=== PATIENT | female | born 1985 | race Caucasian/White ===

== ENCOUNTER 2017-06-10 21:02 | Emergency (ER) | payer BC ==
[2017-06-10 21:09] VITALS: BP 121/80
--- NOTE | 2017-06-10 21:38 | UC ---
Complaint Female HPI - HPI Summary HPI Summary: Pt presents to with report of 3 days of progressive urinary frequency, malodor and 24 of increasing LBP. Pt denies fevers, chills. Denies nausea, vomiting. No rash. no diarrhea. No abdominal pain. Pt is an insulin dependent diabetic - states sugars have been running 200-250. Before dinner tonight was 190 and ketones have been "good." No analgesia taken. No vaginal discharge, itching, odor. Pt states approx 3 weeks ago was treated elsewhere for UTI and placed on Macrobid. Pt states had Group B Strep in urine and was told to d/c abx. Pt states she felt better until 3 weeks ago. Pt with a h/o DKA - last approx 3 months ago. Pt states eating and drink well - feels well otherwise Pt's medications reviewed at today's visit - History Of Current Complaint Chief Complaint: UCBackPain Stated Complaint: FREQ URINATION,BACK PAIN Time Seen by Provider: 06/10/17 21:21 Hx Obtained From: Patient Hx Last Menstrual Period: 1 WEEK AGO Onset/Duration: Lasting Days Timing: Constant Severity Initially: Mild Severity Currently: Moderate Pain Intensity: 5 Aggravating Factor(s): Movement Alleviating Factor(s): Position Associated Signs And Symptoms: Positive: Back Pain. Negative: Fever, Nausea, Vomiting(# Of Episodes =) - Allergies/Home Medications Allergies/Adverse Reactions: Allergies Allergy/AdvReac Type Severity Reaction Status Date / Time No Known Allergies Allergy Verified 06/10/17 21:09 PMH/Surg Hx/FS Hx/Imm Hx Previously Healthy: Yes Endocrine History: Diabetes - Surgical History Surgical History: None - Family History Known Family History: Positive: None - Social History Occupation: Employed Full-time Lives: With Family Alcohol Use: Occasionally Substance Use Type: None Smoking Status (MU): Current Some Day Smoker - Immunization History Most Recent Influenza Vaccination: 2011 Most Recent Tetanus Shot: >10 yrs Most Recent Pneumonia Vaccination: recently Review of Systems Constitutional: Negative Skin: Negative Eyes: Negative ENT: Negative Respiratory: Negative Cardiovascular: Negative Gastrointestinal: Negative Genitourinary: Frequency, Urgency Motor: Negative Neurovascular: Negative Musculoskeletal: Negative Neurological: Negative Psychological: Negative All Other Systems Reviewed And Are Negative: Yes Physical Exam Triage Information Reviewed: Yes Appearance: Well-Appearing, No Pain Distress, Well-Nourished Vital Signs: Initial Vital Signs Temp 98 F 06/10/17 21:05 Pulse 89 06/10/17 21:05 Resp 16 06/10/17 21:05 BP 121/80 06/10/17 21:05 Pulse Ox 99 06/10/17 21:05 Vital Signs Reviewed: Yes Eyes: Positive: Conjunctiva Clear ENT Exam: Normal ENT: Positive: Hearing grossly normal Dental Exam: Normal Neck: Positive: Supple, Nontender, No Lymphadenopathy Respiratory Exam: Normal Respiratory: Positive: Chest non-tender, Lungs clear, Normal breath sounds, No respiratory distress, No accessory muscle use Cardiovascular Exam: Normal Cardiovascular: Positive: RRR, No Murmur, Pulses Normal Abdominal Exam: Normal Abdomen Description: Positive: No Organomegaly, Soft, Other: - mild suprapubic discomfort with direct palpation. Negative: Nontender, CVA Tenderness (R), CVA Tenderness (L) Bowel Sounds: Positive: Present Musculoskeletal Exam: Normal Musculoskeletal: Positive: Strength Intact Neurological Exam: Normal Neurological: Positive: Alert Psychological Exam: Normal Psychological: Positive: Normal Response To Family Skin Exam: Normal Complaint Female Dx - Course Course Of Treatment: Pt presents with urinary frequency and odor. Pt is an insulin dependent diabetic. reports BG 190 tonight. urine + UTI. 1+ ketone. Pt well appearing on exam with stable VS. Mick discharge home with Rx cipro. urine culture. Pt given strict return instructions. states understanding, agreement and comfort with plan - Differential Dx/Diagnosis Provider Diagnoses: UTI Discharge - Discharge Plan Condition: Stable Disposition: HOME Prescriptions: Ciprofloxacin TAB* [Cipro 500 MG TAB*] 500 mg PO BID #20 tab Patient Education Materials: Urinary Tract Infection in Women (ED) Referrals: No Primary Care Phys,NOPCP [Primary Care Provider] - Additional Instructions: - Stay well hydrated. Drink plenty on non-alcoholic, non-caffinated beverages - Take antibiotics exactly as prescribed until gone - Okay to take Tylenol every 6 hours as needed for pain - Your urine has been sent for additional testing - if you need a different antibiotic, you will receive a call from the care team - Monitor your glucose and your urine ketones closely - if you develop fevers, vomiting, uncontrolled pain or ANY other concerns, go to the emergency department for additional treatment. contact your doctor to arrange a follow-up appointment
[2017-06-10] MEDS ORDERED: Ciprofloxacin TAB* 500 MG PO ONE (21:50)
[2017-06-10] MEDS ORDERED: Acetaminophen TAB* 325 MG PO ONE (21:50)
--- NOTE | 2017-06-13 16:50 | UC ---
Progress - Progress Note Progress Note: ON CIPRO AT DISCHARGE. CULTURE AND SENSITIVITY SHOW MICROBE IS SENSITIVE TO SELECTED THERAPY NO CHANGE OF TREATMENT COURSE REQUIRED AT THIS TIME <Sherwin Brannon - Last Filed: 06/13/17 16:50> Attestation Statement User Type: Provider - I was available for consult. This patient was seen by the AFSHAN. The patient was not presented to, seen by, or examined by me. -Kathleen <Isabel Vega - Last Filed: 06/14/17 09:19>
== END 2017-06-10 22:04 | disposition home or self-care (01) ==
LOC: UCEAST 21:02
DX: N39.0 Urinary tract infection, site not specified (principal); Z32.02 Encounter for pregnancy test, result negative; E11.9 Type 2 diabetes mellitus without complications; F17.210 Nicotine dependence, cigarettes, uncomplicated
CPT/HCPCS: 81003; 84702; 87077; 87086; 87186; 99212; A9270-GY; G0463

== ENCOUNTER 2017-10-08 06:51 | Observation (INO) | payer BC ==
[2017-10-08] MEDS ORDERED: Ondansetron INJ* 2 MG/ML VIAL IV ONE (07:41)
[2017-10-08] MEDS ORDERED: NS 0.9% 1000 ML* 3,000 ML IV ONE (07:41)
[2017-10-08 08:14] LABS: ABS Basophils 0 10^3/ul (0-0.2); ABS Eosinophils 0 10^3/ul (0-0.6); ABS Lymphocytes 0.8 10^3/ul (1.0-4.8); ABS Monocytes 0.8 10^3/ul (0-0.8); ABS Neutrophils 11.8 10^3/ul (1.5-7.7); ABS Nucleated RBC 0.03 10^3/ul; EGFR Non-African American 58.5 (>60); Eosinophil % 0 % (0-6); Hematocrit 48 % (35-47); Hemoglobin 16.1 g/dl (12.0-16.0); Lymphocyte % 5.6 % (25-47); Mean Corpuscular HGB Conc 33 g/dl (31-36); Mean Corpuscular Hemoglobin 31 pg (27-31); Mean Corpuscular Volume 94 fL (80-97); Mean Platelet Volume 8 um3 (7.4-10.4); Nucleated Red Blood Cells % 0.2; Platelet Count 344 10^3/ul (150-450); Red Blood Count 5.15 10^6/ul (4.0-5.4); Red Cell Distribution Width 13 % (10.5-15); White Blood Count 13.3 10^3/ul (3.5-10.8)
[2017-10-08 08:17] LABS: INR 0.86 (0.77-1.02)
[2017-10-08 08:47] LABS: Urine Appearance Cloudy; Urine Blood 2+ (Negative); Urine Color Straw; Urine Ketones 2+ (Negative); Urine Protein 1+(30 mg/dL) (Negative); Urine Specific Gravity 1.014 (1.010-1.030); Urine Urobilinogen Negative (Negative)
[2017-10-08] MEDS ORDERED: Ketorolac INJ* 30 MG/ML 1 ML VIAL IV ONE (09:48)
[2017-10-08] MEDS ORDERED: cefTRIAXone(*) 1 GM in NS 0.9% 50 ML* 50 ML IVPB ONE (09:48)
--- NOTE | 2017-10-08 10:06 | RAD ---
Indication: Fever and chills. Single frontal view of the chest performed at 0950 hours was reviewed. Comparison is made with previous exam dated September 16, 2010. No mediastinal shift is noted. Heart is of normal size and configuration. Lung [place] appear clear. IMPRESSION: NO ACTIVE CARDIOPULMONARY DISEASE IS NOTED.
[2017-10-08] MEDS ORDERED: Acetaminophen TAB* 325 MG PO PRN (10:40)
--- NOTE | 2017-10-08 10:52 | ADMNOTE ---
Subjective Date of Service: 10/08/17 Interval History: ADMISSION HISTORY AND PHYSICAL EXAM: Allergies Allergy/AdvReac Type Severity Reaction Status Date / Time No Known Allergies Allergy Verified 06/10/17 21:09 Home Medications Medication Instructions Recorded Confirmed Type Insulin Glargine [Lantus] 40 units SUBCUT BEDTIME 07/19/12 06/10/17 History Insulin Lispro [Humalog] 100 unit SC PRN 03/17/16 History Ciprofloxacin TAB* [Cipro 500 MG 500 mg PO BID #20 tab 06/10/17 Rx TAB*] HPI: The patient started feeling poorly yesterday, did not take short-acting insulin all day even though her glucometer read 178. She did take her usual dose of Lantus 40 U last evening. She started throwing up and having BL flank and back pain. No chills or sweats, no sx's. Family History: Findings - Father got DM age 22, on insulin, never had DKA. Other family members have DM. Social History: Findings - Lives alone. Occ smokes cigarettes. No alcohol abuse. Her mother, Torrie Mcgovern is her SDM. Past Medical History: Findings - Approx 4 prior episodes of DKA. DM since age 21. Review of Systems - Measurements Intake and Output: Intake and Output Last 24 Hours 10/06/17 10/07/17 10/08/17 10/09/17 06:59 06:59 06:59 06:59 Intake Total 50 Balance 50 Intake: IV Fluids 50 - Review of Systems Constitutional Symptoms: Negative: Weight Gain, Weight Loss, Weakness, Fatigue, Fever, Night Sweats, Unexplained Falls, Other Dermatology: Positive: Normal HEENT: Positive: Normal Eyes: Positive: Normal Thyroid: Positive: Normal Pulmonary: Positive: Normal Cardiology: Positive: Normal Gastroenterology: Positive: Nausea, Vomiting Genital - Urinary: Positive: Normal Genitourinay - Female: Positive: Menses Normal Musculoskeletal: Negative: Joint Pain, Joint Stiffness, Arthritis, Osteoporosis, Low Back Pain , Sciatica, Joint Deformities, Kyphoscoliosis, Other Endocrinology: Positive: Diabetes Mellitus Hematologic/Lymphatic: Negative: Anemia, Easy Brusing, Hx Leukemia, Hx Lymphoma, Use of Anticoagulant, Use of Antiplatelet Drugs, Other Neurology: Positive: Normal Psychiatry: Positive: Normal Objective Active Medications: Acetaminophen (Tylenol Tab*) 650 mg PO Q4H PRN PRN Reason: PAIN Potassium Chloride/Dextrose (D5w Ns 0.9% 20meq Kcl 1000 Ml*) 1,000 mls @ 150 mls/hr IV PER RATE [facility] Insulin Human Regular 100 (units/ Sodium Chloride) 100 mls @ 4 mls/hr IVPB Q24H [facility] PRN Reason: 4 UNITS/HR Insulin Glargine (Lantus(*)) 40 units SUBCUT Q24H [facility] Vital Signs - 8 hr 10/08/17 10/08/17 10:00 10:07 Pulse Rate 90 92 Blood Pressure 104/63 (mmHg) O2 Sat by Pulse 100 100 Oximetry Oxygen Devices in Use Now: None Appearance: Alert, sitting up on ED stretcher. In fair spirits. Looks comfortable. Eyes: No Scleral Icterus Neck: NL Appearance and Movements; NL JVP, No Thyroid Enlargement, Masses Respiratory: Symmetrical Chest Expansion and Respiratory Effort, Clear to Auscultation, Clear to Percussion Cardiovascular: NL Sounds; No Murmurs; No JVD, RRR, No Edema, - Abdominal: No Hepatosplenomegaly, - - BL flank tenderness. Extremities: No Edema, No Clubbing, Cyanosis, - Skin: No Rash or Ulcers, No Nodules or Sclerosis, - Neurological: Alert and Oriented x 3, NL Sensation Result Diagrams: 10/08/17 07:47 10/08/17 07:47 Assess/Plan/Problems-Billing Assessment: - Patient Problems (1) DKA (diabetic ketoacidoses) Current Visit: No Status: Acute Code(s): E13.10 - OTH DIABETES MELLITUS WITH KETOACIDOSIS WITHOUT COMA SNOMED Code(s): 295504408 Comment: Start insulin drip. Back pain is part of her usual DKA symptoms. U /A neg. US kidneys requested. I spoke with Dr. Watson who thought she might be a candidate for a newer insulin pump. She did poorly with an insulin pump about 10 yrs ago. (2) Tobacco abuse Current Visit: Yes Status: Acute Code(s): Z72.0 - TOBACCO USE SNOMED Code( s): 264977903 Comment: Pt advised to quit smoking and avoid second hand smoke.
[2017-10-08] MEDS ORDERED: Insulin REGULAR(*) 100 UNITS in NS 0.9% 100 ML* 100 ML IVPB SCH (11:00)
[2017-10-08] MEDS ORDERED: D5W NS 0.9% 20Meq KCL 1000 ML* 1,000 ML IV SCH (11:00)
[2017-10-08] MEDS ORDERED: Ondansetron INJ* 2 MG/ML VIAL IV PRN (11:30)
--- NOTE | 2017-10-08 11:43 | RAD ---
Indication: Bilateral flank pain. Real-time sonography of the kidneys was performed. The right kidney measures 11.2 x 3.9 x 6.1 cm. Left kidney measures 11.7 x 5.1 x 5.0 cm. No hydronephrosis is noted. IMPRESSION: Unremarkable renal ultrasound with no hydronephrosis.
[2017-10-08 14:43] LABS: EGFR Non-African American 74.9 (>60)
[2017-10-08] MEDS ORDERED: Dextrose 50% Syringe 50 ML* 25 GM/50 ML SYRINGE IV PUSH PRN (15:44)
[2017-10-08] MEDS: Insulin LISPRO* 1 UNITS UNIT SUBCUT SCH ×2 (17:34→21:55)
--- NOTE | 2017-10-08 18:20 | ED ---
Breonna Turner Abhishek, scribed for Eric Borjas MD on 10/08/17 at 0741 . Influenza-Like Illness - HPI Summary HPI Summary: This patient is a 32 year old F BIBA accompanied by female with a chief complaint of N/V/D since 0000 (10/07/17). Pt vomited at midnight yesterday. Wants to check for UTI and gets them often. Pt has not taken Tylenol and ibuprofen because of inability to keep anything down. The patient rates the pain 6/10 in severity. Symptoms aggravated by nothing. Symptoms alleviated by nothing. Patient reports kidney pain, lower back pain, CASTELLANOS and Intermittent chills and hot flashes. Patient denies fever, and ear pain. - History of Current Complaint Chief Complaint: EDNauseaVomitDiarrh Hx Obtained From: Patient Onset/Duration: Gradual Onset, Lasting Days - yesterday mightnight (0000), Still Present Associated Signs & Symptoms: Myalgia - lower back pain, Headache, Vomiting, Diarrhea - Allergy/Home Medications Allergies/Adverse Reactions: Allergies Allergy/AdvReac Type Severity Reaction Status Date / Time No Known Allergies Allergy Verified 06/10/17 21:09 PMH/Surg Hx/FS Hx/Imm Hx Endocrine/Hematology History: Reports: Hx Diabetes Denies: Hx Thyroid Disease Cardiovascular History: Denies: Hx Hypertension Respiratory History: Denies: Hx Asthma, Hx Chronic Obstructive Pulmonary Disease (COPD) GI History: Denies: Hx Ulcer Sensory History: Reports: Hx Contacts or Glasses Opthamlomology History: Reports: Hx Contacts or Glasses Infectious Disease History: No Infectious Disease History: Denies: Hx Hepatitis, Hx Human Immunodeficiency Virus (HIV), Traveled Outside the [place] in Last 30 Days - Family History Known Family History: Positive: Hypertension, Diabetes - Social History Lives: With Family Alcohol Use: Occasionally Substance Use Type: Reports: None Hx Tobacco Use: Yes Smoking Status (MU): Current Some Day Smoker Review of Systems Positive: Other - Intermittent chills and hot flashes. Negative: Fever Eyes: Negative Negative: Ear Ache Cardiovascular: Negative Respiratory: Negative Positive: Vomiting - 1x at 0000 on 10/07/17, Diarrhea, Nausea Genitourinary: Negative Positive: Myalgia - lower back pain Skin: Negative Neurological: Negative Psychological: Normal All Other Systems Reviewed And Are Negative: Yes Physical Exam - Summary Physical Exam Summary: General: Moderately ill appearing, no pain distress Skin: warm, color reflects adequate perfusion, dry Head: normal, Oral mucosa Dry Eyes: EOMI, ANDREW ENT: normal, Ears are dry Neck: supple, nontender Respiratory: CTA, breath sounds present Cardiovascular: RRR Abdomen: Bilateral flank tenderness to percussion Bowel: present Musculoskeletal: normal, strength/ROM intact Neurological: normal, sensory/motor intact, A&O x3 Psychological: affect/mood appropriate Triage Information Reviewed: Yes Vital Signs On Initial Exam: Initial Vitals Temp Pulse Resp BP Pulse Ox 97.7 F 107 20 117/74 98 10/08/17 06:54 10/08/17 06:54 10/08/17 06:54 10/08/17 06:54 10/08/17 06:54 Vital Signs Reviewed: Yes - Nicolette Coma Scale Coma Scale Total: 15 Diagnostics - Vital Signs Vital Signs Temp Pulse Resp BP Pulse Ox 10/08/17 07:30 101 126/79 100 10/08/17 07:10 99 100 10/08/17 07:08 119/80 10/08/17 06:54 97.7 F 107 20 117/74 98 - Laboratory Lab Results: Lab Results 10/08/17 10/08/17 10/08/17 Range/Units 07:47 07:47 07:47 WBC 13.3 H (3.5-10.8) 10^3/ul RBC 5.15 (4.0-5.4) 10^6/ul Hgb 16.1 H (12.0-16.0) g/dl Hct 48 H (35-47) % MCV 94 (80-97) fL MCH 31 (27-31) pg MCHC 33 (31-36) g/dl RDW 13 (10.5-15) % Plt Count 344 (150-450) 10^3/ul MPV 8 (7.4-10.4) um3 Neut % (Auto) 88.6 H (38-83) % Lymph % (Auto) 5.6 L (25-47) % [place] % (Auto) 5.7 (1-9) % Eos % (Auto) 0 (0-6) % Baso % (Auto) 0.1 (0-2) % Absolute Neuts (auto) 11.8 H (1.5-7.7) 10^3/ul Absolute Lymphs (auto) 0.8 L (1.0-4.8) 10^3/ul Absolute Monos (auto) 0.8 (0-0.8) 10^3/ul Absolute Eos (auto) 0 (0-0.6) 10^3/ul Absolute Basos (auto) 0 (0-0.2) 10^3/ul Absolute Nucleated RBC 0.03 10^3/ul Nucleated RBC % 0.2 INR (Anticoag Therapy) 0.86 (0.77-1.02) APTT 30.4 (26.0-36.3) seconds VBG pH (7.33-7.43) VBG pCO2 (41-51) mmHg VBG pO2 (35-45) mmHg VBG HCO3 (24-28) mmol/L VBG O2 Saturation (70-80) % VBG Base Excess (0-4) Sodium 133 (133-145) mmol/L Potassium 4.6 (3.5-5.0) mmol/L Chloride 101 (101-111) mmol/L Carbon Dioxide 12 L* (22-32) mmol/L Anion Gap 20 H (2-11) mmol/L BUN 15 (6-24) mg/dL Creatinine 1.09 H (0.51-0.95) mg/dL Est GFR ( Amer) 75.3 (>60) Est GFR (Non-Af Amer) 58.5 (>60) BUN/Creatinine Ratio 13.8 (8-20) Glucose 207 H (70-100) mg/dL POC Glucose (mg/dL) (70-100) mg/dL Lactic Acid (0.5-2.0) mmol/L Calcium 9.4 (8.6-10.3) mg/dL Total Bilirubin 0.40 (0.2-1.0) mg/dL AST 14 (13-39) U/L ALT 14 (7-52) U/L Alkaline Phosphatase 91 (34-104) U/L C-Reactive Protein 3.39 (< 5.00) mg/L Total Protein 8.3 (6.4-8.9) g/dL Albumin 5.2 (3.2-5.2) g/dL Globulin 3.1 (2-4) g/dL Albumin/Globulin Ratio 1.7 (1-3) Lipase < 10 L (11.0-82.0) U/L Beta HCG, Quant < 0.60 mIU/mL Urine Color Urine Appearance Urine pH (5-9) Ur Specific [place] (1.010-1.030) Urine Protein (Negative) Urine Ketones (Negative) Urine Blood (Negative) Urine Nitrate (Negative) Urine Bilirubin (Negative) Urine Urobilinogen (Negative) Ur Leukocyte Esterase (Negative) Urine WBC (Auto) (Absent) Urine RBC (Auto) (Absent) Ur Squamous Epith Cells (Absent) Urine Bacteria (Absent) Urine Glucose (Negative) Influenza A (Rapid) (Negative) Influenza B (Rapid) (Negative) 10/08/17 10/08/17 10/08/17 Range/Units 07:47 07:58 08:03 WBC (3.5-10.8) 10^3/ul RBC (4.0-5.4) 10^6/ul Hgb (12.0-16.0) g/dl Hct (35-47) % MCV (80-97) fL MCH (27-31) pg MCHC (31-36) g/dl RDW (10.5-15) % Plt Count (150-450) 10^3/ul MPV (7.4-10.4) um3 Neut % (Auto) (38-83) % Lymph % (Auto) (25-47) % Gila % (Auto) (1-9) % Eos % (Auto) (0-6) % Baso % (Auto) (0-2) % Absolute Neuts (auto) (1.5-7.7) 10^3/ul Absolute Lymphs (auto) (1.0-4.8) 10^3/ul Absolute Monos (auto) (0-0.8) 10^3/ul Absolute Eos (auto) (0-0.6) 10^3/ul Absolute Basos (auto) (0-0.2) 10^3/ul Absolute Nucleated RBC 10^3/ul Nucleated RBC % INR (Anticoag Therapy) (0.77-1.02) APTT (26.0-36.3) seconds VBG pH 7.12 L (7.33-7.43) VBG pCO2 25 L (41-51) mmHg VBG pO2 31 L (35-45) mmHg VBG HCO3 8.8 L (24-28) mmol/L VBG O2 Saturation 70.1 (70-80) % VBG Base Excess -19.7 L (0-4) Sodium (133-145) mmol/L Potassium (3.5-5.0) mmol/L Chloride (101-111) mmol/L Carbon Dioxide (22-32) mmol/L Anion Gap (2-11) mmol/L BUN (6-24) mg/dL Creatinine (0.51-0.95) mg/dL Est GFR ( Amer) (>60) Est GFR (Non-Af Amer) (>60) BUN/Creatinine Ratio (8-20) Glucose (70-100) mg/dL POC Glucose (mg/dL) (70-100) mg/dL Lactic Acid 1.2 (0.5-2.0) mmol/L Calcium (8.6-10.3) mg/dL Total Bilirubin (0.2-1.0) mg/dL AST (13-39) U/L ALT (7-52) U/L Alkaline Phosphatase (34-104) U/L C-Reactive Protein (< 5.00) mg/L Total Protein (6.4-8.9) g/dL Albumin (3.2-5.2) g/dL Globulin (2-4) g/dL Albumin/Globulin Ratio (1-3) Lipase (11.0-82.0) U/L Beta HCG, Quant mIU/mL Urine Color Straw Urine Appearance Cloudy Urine pH 5.0 (5-9) Ur Specific [place] 1.014 (1.010-1.030) Urine Protein 1+(30 mg/dl) H (Negative) Urine Ketones 2+ H (Negative) Urine Blood 2+ H (Negative) Urine Nitrate Negative (Negative) Urine Bilirubin Negative (Negative) Urine Urobilinogen Negative (Negative) Ur Leukocyte Esterase Negative (Negative) Urine WBC (Auto) Trace(0-5/hpf) (Absent) Urine RBC (Auto) 2+(6-10/hpf) H (Absent) Ur Squamous Epith Cells Present H (Absent) Urine Bacteria Absent (Absent) Urine Glucose 3+(>=500 mg/dl) H (Negative) Influenza A (Rapid) (Negative) Influenza B (Rapid) (Negative) 10/08/17 10/08/17 Range/Units 08:09 08:23 WBC (3.5-10.8) 10^3/ul RBC (4.0-5.4) 10^6/ul Hgb (12.0-16.0) g/dl Hct (35-47) % MCV (80-97) fL MCH (27-31) pg MCHC (31-36) g/dl RDW (10.5-15) % Plt Count (150-450) 10^3/ul MPV (7.4-10.4) um3 Neut % (Auto) (38-83) % Lymph % (Auto) (25-47) % [place] % (Auto) (1-9) % Eos % (Auto) (0-6) % Baso % (Auto) (0-2) % Absolute Neuts (auto) (1.5-7.7) 10^3/ul Absolute Lymphs (auto) (1.0-4.8) 10^3/ul Absolute Monos (auto) (0-0.8) 10^3/ul Absolute Eos (auto) (0-0.6) 10^3/ul Absolute Basos (auto) (0-0.2) 10^3/ul Absolute Nucleated RBC 10^3/ul Nucleated RBC % INR (Anticoag Therapy) (0.77-1.02) APTT (26.0-36.3) seconds VBG pH (7.33-7.43) VBG pCO2 (41-51) mmHg VBG pO2 (35-45) mmHg VBG HCO3 (24-28) mmol/L VBG O2 Saturation (70-80) % VBG Base Excess (0-4) Sodium (133-145) mmol/L Potassium (3.5-5.0) mmol/L Chloride (101-111) mmol/L Carbon Dioxide (22-32) mmol/L Anion Gap (2-11) mmol/L BUN (6-24) mg/dL Creatinine (0.51-0.95) mg/dL Est GFR ( Amer) (>60) Est GFR (Non-Af Amer) (>60) BUN/Creatinine Ratio (8-20) Glucose (70-100) mg/dL POC Glucose (mg/dL) 184 H (70-100) mg/dL Lactic Acid (0.5-2.0) mmol/L Calcium (8.6-10.3) mg/dL Total Bilirubin (0.2-1.0) mg/dL AST (13-39) U/L ALT (7-52) U/L Alkaline Phosphatase (34-104) U/L C-Reactive Protein (< 5.00) mg/L Total Protein (6.4-8.9) g/dL Albumin (3.2-5.2) g/dL Globulin (2-4) g/dL Albumin/Globulin Ratio (1-3) Lipase (11.0-82.0) U/L Beta HCG, Quant mIU/mL Urine Color Urine Appearance Urine pH (5-9) Ur Specific [place] (1.010-1.030) Urine Protein (Negative) Urine Ketones (Negative) Urine Blood (Negative) Urine Nitrate (Negative) Urine Bilirubin (Negative) Urine Urobilinogen (Negative) Ur Leukocyte Esterase (Negative) Urine WBC (Auto) (Absent) Urine RBC (Auto) (Absent) Ur Squamous Epith Cells (Absent) Urine Bacteria (Absent) Urine Glucose (Negative) Influenza A (Rapid) Negative (Negative) Influenza B (Rapid) Negative (Negative) Result Diagrams: 10/08/17 07:47 10/08/17 14:00 Lab Statement: Any lab studies that have been ordered have been reviewed, and results considered in the medical decision making process. - CT Chest X-ray CT Interpretation Completed By: Radiologist - CXR reveals, per radiologist, NO ACTIVE CARDIOPULMONARY DISEASE IS NOTED. ED physician has reviewed this radiology report. - Ultrasound No standard instances Ultrasound Interpretation Completed By: Radiologist - US Renal Reveals Unremarkable renal ultrasound with no hydronephrosis. ED physician has reviewed this radiology report. Flu Symptom Course/Dx - Course Course Of Treatment: ADMIT HOSPITALIST - Diagnoses Provider Diagnoses: DKA (diabetic ketoacidoses) Critical Care Time: 30-74 min Discharge - Discharge Plan Condition: Stable Disposition: ADMITTED TO [facility] documentation as recorded by the Breonna villanueva Abhishek accurately reflects the service I personally performed and the decisions made by , Eric Borjas MD.
[2017-10-08] MEDS ORDERED: Insulin GLARGINE(*) 1 UNITS UNIT SUBCUT SCH (20:00)
[2017-10-09 07:31] VITALS: BP 101/67
[2017-10-09] MEDS: Insulin LISPRO* 1 UNITS UNIT SUBCUT SCH (07:51)
[2017-10-09] MEDS ORDERED: Dextrose 50% Syringe 50 ML* 25 GM/50 ML SYRINGE IV PUSH PRN (09:46)
--- NOTE | 2017-10-09 11:20 | PN ---
Progress Note - Progress Note Date of Service: 10/09/17
[2017-10-09] MEDS ORDERED: Insulin LISPRO* 1 UNITS UNIT SUBCUT SCH (11:30)
--- NOTE | 2017-10-09 15:47 | DS ---
CC: Dr. Connolly; Dr. Watson * DISCHARGE SUMMARY: DATE OF ADMISSION: 10/08/17 DATE OF DISCHARGE: 10/09/17 HISTORY OF PRESENT ILLNESS: This 32-year-old woman presented with emesis and bilateral flank pain. She was found to be in diabetic ketoacidosis even though her blood sugar on presentation to the hospital was only 207. She did have an anion gap, she had ketones in the urine. The last time she had the diabetic ketoacidosis which was a year and a half ago, her blood sugar was only 236. She omitted taking insulin in the morning of admission because she did not feel well and she was not eating even though her blood sugar was 178. She did take her Lantus on schedule, however. The patient was given intravenous insulin. Her anion gap went from 20 to 6 in about 7 hours. She felt much better. Her flank pain went away. Ultrasound of the kidneys was unremarkable. I advised her that she needs to take insulin even if she is not eating. She really did not follow her 2 sliding scales at that time. We will arrange for her to have an appointment with Dr. Watson for consideration of insulin pump therapy or other type of therapy for her diabetes. 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 [id number]/[facility] #: [id number]
== END 2017-10-09 11:15 | disposition home or self-care (01) ==
LOC: ED 06:51 → ICU 09:50 → INTOOBSV 09:50 → SSU 18:11
PROVIDERS: ADMIT Internal Medicine; ATTEND Internal Medicine
DX: E11.10 Type 2 diabetes mellitus with ketoacidosis without coma (principal); Z79.4 Long term (current) use of insulin; R07.9 Chest pain, unspecified; R11.2 Nausea with vomiting, unspecified; F17.210 Nicotine dependence, cigarettes, uncomplicated; R19.7 Diarrhea, unspecified; M54.5 Low back pain
CPT/HCPCS: 36415; 71010; 76775; 80048; 80053; 81003; 81015; 82803; 83605; 83690; 84702; 85025; 85610; 85730; 86140; 87040; 87502; 87641; 96365; 96375; 99291; A9270-GY; G0378; J0696; J1815; J1885; J2405

== ENCOUNTER 2019-04-16 02:00 | Emergency (ER) | payer BC, OTHER ==
[2019-04-16] MEDS ORDERED: Lidocaine 2% 10 ML* VIAL INJ ONE (02:16)
[2019-04-16] MEDS ORDERED: Bupivacaine 0.5% W/EPI SDV* 10 ML VIAL INJ ONE (02:16)
--- NOTE | 2019-04-16 02:18 | ED ---
Throat Pain/Nasal Congestion - HPI Summary HPI Summary: A 34 y/o female presents to [facility] with a chief complaint of right lower back molar pain since 04/15/19. She reports that on 04/13/19 she fractured she had 1/ 2 of a root canal done on a fractured tooth. She says that on 04/15/19 she had a piercing, stabbing pain, took abx, and now has a different pain. At triage she rated her pain as an 8/10 in severity. She has been taking Advil. She denies any fever. She has a Hx of DM and claims that currently her blood glucose is high. SHx of wisdom teeth removal. - History of Current Complaint Chief Complaint: EDDentalPain Time Seen by Provider: 04/16/19 02:11 Hx Obtained From: Patient Onset/Duration: Sudden Onset, Lasting Hours, Still Present Severity: Severe Associated Signs And Symptoms: Positive: Negative Cough: None - Allergies/Home Medications Allergies/Adverse Reactions: Allergies Allergy/AdvReac Type Severity Reaction Status Date / Time amoxicillin Allergy Hives Verified 04/16/19 02:04 Home Medications: Home Medications Cephalexin CAP* [Keflex 500 CAP*] 500 mg PO BID 04/16/19 [History Confirmed 01/30] PMH/Surg Hx/FS Hx/Imm Hx Endocrine/Hematology History: Reports: Hx Diabetes Denies: Hx Thyroid Disease Cardiovascular History: Denies: Hx Hypertension Respiratory History: Denies: Hx Asthma, Hx Chronic Obstructive Pulmonary Disease (COPD) GI History: Denies: Hx Ulcer Musculoskeletal History: Denies: Hx Arthritis, Hx Osteoporosis Sensory History: Reports: Hx Contacts or Glasses Denies: Hx Hearing Aid Opthamlomology History: Reports: Hx Contacts or Glasses Neurological History: Reports: Hx Headaches - stress Infectious Disease History: No Infectious Disease History: Denies: Hx Hepatitis, Hx Human Immunodeficiency Virus (HIV), Traveled Outside the [place] in Last 30 Days - Family History Known Family History: Positive: Hypertension, Diabetes - Social History Alcohol Use: Occasionally Substance Use Type: Reports: None Hx Tobacco Use: Yes Smoking Status (MU): Current Some Day Smoker Type: Cigarettes Review of Systems Negative: Fever Positive: Dental Pain All Other Systems Reviewed And Are Negative: Yes Physical Exam - Summary Physical Exam Summary: Appearance: Well-appearing, Well-nourished, lying in bed comfortable Skin: Warm, dry, no obvious rash Eyes: sclera anicteric, no conjunctival pallor ENT: mucous membranes moist, no swelling of jaw, involved tooth has temporary filling, no gingival swelling associated, no obvious abscess Neck: deferred Respiratory: No signs of respiratory distress Cardiovascular: Appears well perfused, pulses are nml Abdomen: deferred Musculoskeletal: Moving all 4 extremities without obvious discomfort Neurological: Awake and alert, mentation is normal, speech is fluent and appropriate Psychiatric: affect is normal, does not appear anxious or depressed Triage Information Reviewed: Yes Vital Signs On Initial Exam: Initial Vitals Temp Pulse Resp BP Pulse Ox 98.1 F 93 20 136/99 98 04/16/19 02:01 04/16/19 02:01 04/16/19 02:01 04/16/19 02:01 04/16/19 02:01 Vital Signs Reviewed: Yes Diagnostics - Vital Signs Vital Signs Temp Pulse Resp BP Pulse Ox 04/16/19 02:01 98.1 F 93 20 136/99 98 - Laboratory Lab Statement: Any lab studies that have been ordered have been reviewed, and results considered in the medical decision making process. EENT Course/Dx - Course Course Of Treatment: A 34 y/o female presents to [facility] with a chief complaint of right lower back molar pain since 04/15/19. The physical exam revealed no swelling of jaw, involved tooth has temporary filling, no gingival swelling associated and no obvious abscess. In the ED course the patient was given Marcaine INJ and Lidocaine INJ, dental block. The patient will be discharged with a prescription for Vicodin and follow up with her PCP. The patient is agreeable with this plan. - Diagnoses Provider Diagnoses: Toothache Discharge - Sign-Out/Discharge Documenting (check all that apply): Patient Departure - DC Patient Received Moderate/Deep Sedation with Procedure: No - Discharge Plan Condition: Good Disposition: HOME Prescriptions: Hydrocodone/Acetaminophen [Vicodin 5-300 mg Tablet] 1 each PO Q4HR PRN #15 tablet MDD 6 PRN Reason: Pain Patient Education Materials: Toothache (ED) Referrals: Carisa Connolly MD [Primary Care Provider] - - Billing Disposition and Condition Condition: GOOD Disposition: Home - Attestation Statements Document Initiated by Scribe: Yes Documenting Scribe: Dominic Garcia Provider For Whom Scribe is Documenting (Include Credential): Rey Claudio MD Scribe Attestation: I, Dominic Garcia, scribed for Rey Claudio MD on 04/16/19 at 0601. Scribe Documentation Reviewed: Yes Provider Attestation: The documentation as recorded by the scribeDominic accurately reflects the service I personally performed and the decisions made by me, Rey Claudio MD Status of Scribe Document: Viewed
[2019-04-16 02:55] VITALS: BP 130/89
[2019-04-16] MEDS ORDERED: Bupivacaine 0.5% W/EPI SDV* 30 ML VIAL INJ ONE (03:00)
== END 2019-04-16 02:51 | disposition home or self-care (01) ==
LOC: ED 02:00
DX: K08.89 Other specified disorders of teeth and supporting structures (principal); E11.9 Type 2 diabetes mellitus without complications; Z88.0 Allergy status to penicillin; Z72.0 Tobacco use
CPT/HCPCS: 99282

== ENCOUNTER 2019-09-25 14:16 | Emergency (ER) | payer BC, OTHER ==
--- OUTSIDE RECORDS SUMMARY | 2019-09-25 14:33 | XMS REPORT | Continuity of Care Document ---
:1985 External Reference #:[id number] Author Name Jossy Hinds CNM Address [address] [place] [address] Care Team Providers Name Role Phone Carisa Connolly MD Care Team Information Glassware Maker [phone] Problems Active Problems Provider Date Type 2 diabetes mellitus CATRACHITO Harrington-C Onset: 03/13/2007 Subserous leiomyoma of uterus Chu Hopper M.D. Onset: 06/22/2019 Endometriosis of ovary Chu Hopper M.D. Onset: 08/05/2019 Social History Type Date Description Comments Sex Unknown Tobacco Use Start: Unknown End: Unknown Patient is a former smoker Smoking Status Reviewed: 09/25/19 Patient is a former smoker Allergies, Adverse Reactions, Alerts Active Allergies Reaction Severity Comments Date Amoxicillin Urticaria 12/27/2017 Inactive Allergies NKDA 11/14/2005 Medications Active Medications SIG Qnty Indications Ordering Provider Date Norethindrone Acetate 1 by mouth 60tabs Chu Hopper, 08/11/2019 5mg every day M.D. Tablets Apidra Geovanna Cramer, 03/13/2007 100Units/ML ANP-C Injection Lantus Geovanna Cramer, 03/13/2007 100Units/ML ANP-C Injection Mirena (52 MG) Unknown 20mcg/24HR IUD Vitamin B-12 1 po qd Unknown 500mcg Tablets Vitamin C 1 by mouth Unknown 500mg Tablets every day Vitamin D3 take one tablet Unknown 1000Unit by mouth daily. Capsules History Medications Orilissa 1 by mouth every 90tabs N80.1 Chu Hopper, 06/30/2019 - 150mg day M.DMarzena 07/14/2019 Tablets Medications Administered in Office Medication SIG Qnty Indications Ordering Provider Date PT SCRN Tbco Id as Non User Jossy Hinds CNM 09/25/2019 Injection PT SCRN Tbco Id as Non User Chu Hopper M.D. 08/11/2019 Injection PT SCRN Tbco Id as Non User Chu Hopper M.D. 06/30/2019 Injection PT SCRN Tbco Id as Non User Melodie Whitfield CNM 06/08/2019 Injection PT SCRN Tbco Id as Non User Melodie Whitfield CNM 04/29/2019 Injection No PT Tbco SCRN RNG CLARIBEL Harrington 11/06/2018 Injection PT SCRN Tbco Id as Non User CLARIBEL Harrington 11/06/2018 Injection PT SCRN Tbco Id as Non User Rui Gregorio MD 12/27/2017 Injection Immunizations Description No Information Available Vital Signs Date Vital Result Comment 09/25/2019 1:23pm BP Systolic 144 mmHg BP Diastolic 90 mmHg Height 64.5 inches 5'4.50" Weight 150.00 lb BMI (Body Mass Index) 25.3 kg/m2 1 Parity 0 08/11/2019 8:38am BP Systolic 124 mmHg BP Diastolic 76 mmHg Height 64.5 inches 5'4.50" Weight 147.00 lb BMI (Body Mass Index) 24.8 kg/m2 1 Parity 0 Results Test Acquired Date Facility Test Result H/L Range Note Laboratory test 04/29/2019 [facility] HCG < 0.60 [address] [place] [address] mIU/mL [phone] 1 <5.0 Negative 5.0 - 25.0 Indeterminate (Repeat testing recommended after 72 hours) >25.0 Positive Perimenopausal women can display HCG levels of up to 20 mIU/mL Procedures Date Code Description Status 06/08/2019 82387 Echography Transvaginal Completed Medical Devices Description No Information Available Encounters Type Date Location Provider Dx Diagnosis Office Visit 09/25/2019 [facility] Jossy Hinds CNM R10.31 Right lower quadrant 1:30p pain Office Visit 08/11/2019 [facility] Chu Hopper, R10.2 Pelvic and perineal 8:40a M.D. pain Office Visit 06/30/2019 [facility] Chu Hopper, N80.1 Endometriosis of ovary 2:20p M.D. D25.2 Subserosal leiomyoma of uterus Office Visit 06/08/2019 1:40p [facility] Melodie Gonzalez D25.2 Subserosal KARY Whitfield leiomyoma of uterus Office Visit 04/29/2019 2:20p [facility] Office Melodie Gonzalez R10.2 Pelvic and KARY Whitfield perineal pain Assessments Date Code Description Provider 09/25/2019 R10.31 Right lower quadrant pain Jossy Hinds CNM 08/11/2019 R10.2 Pelvic and perineal pain Chu Hopper M.D. 06/30/2019 N80.1 Endometriosis of ovary Chu Hopper M.D. 06/30/2019 D25.2 Subserosal leiomyoma of uterus Chu Hopper M.D. 06/08/2019 D25.2 Subserosal leiomyoma of uterus Chu Hopper M.D. 06/08/2019 D25.2 Subserosal leiomyoma of uterus Melodie Whitfield CNM 06/08/2019 D25.2 Subserosal leiomyoma of uterus Ultrasounds 04/29/2019 R10.2 Pelvic and perineal pain Melodie Whitfield CNM Plan of Treatment Future Appointment(s):09/30/2019 1:00 pm - Rui Gregorio MD at [facility] - Chu Hopper M.D.R10.2 Pelvic and perineal painComments: discussed use of progestin for rx . should have less side effects. if not effective may have to consider lapaoscopy for evaluation. pt has no plans for future fertility Functional Status Description No Information Available Mental Status Description No Information Available Referrals Description No Information Available
--- OUTSIDE RECORDS SUMMARY | 2019-09-25 14:34 | XMS REPORT | Summary of Care ---
:1985 Author Organization [facility] Address [address] [facility] [place] [address] Care Team Providers Name Role Phone Carisa Connolly MD Primary Care Provider Reason for Visit Reason Comments Diabetes Mellitus Pt reports using dexcom 6 Follow Up Encounter Details Date Type Department Care Team Description 08/27/2019 Office Visit [facility], Type 1 diabetes [address] [facility] [place] [address] [place] [address] complication ([facility]) [phone] [place] [address] (Primary Dx) [phone] Allergies Active Allergy Reactions Severity Noted Date Comments Amoxicillin Hives 10/11/2017 documented as of this encounter (statuses as of 08/27/2019) Medications Medication Sig Dispensed Refills Start Date End Date Status Blood Glucose by Does not apply 1 Kit 0 02/08/2010 Active Monitoring Suppl route. (BLOOD GLUCOSE METER) Does not apply Kit Lancets Does not by Does not apply 300 Each 5 05/11/2013 Active apply Misc route. Brand:freestyle Dx:250.03 Insulin dependent Test Blood Glucose 4 time(s) A DAY LISPRO insulin, RAPID Inject 7 Units 0 Active - Acting, (HUMALOG) beneath the skin 100 UNIT/ML DIRECTED. 7 base Subcutaneous plus sliding scale SolutionIndications: Indications: Type 1 Diabetes Insulin-Dependent Mellitus, additional Diabetes, correction factor is additional 2 unit to15 grams of correction factor carb is 2 unit to15 grams of carb GLARGINE insulin, Inject 18-20 Units 3 vial 3 05/09/2018 Active LONG-Acting, (LANTUS) beneath the skin 100 UNIT/ML TWICE DAILY. Subcutaneous SolutionIndications: Type 1 diabetes mellitus without complication (HCC) Additional information Patient taking differently: 35 Units Subcutaneous QAM, Reported on 2018 9:42 AM Continuous Blood Gluc Travel Manager 1 Device by Does not 1 Device 0 11/12/2018 Active (FREESTYLE TORITO 14 DAY READER) apply route DAILY. Type Does not apply 1 diabetes, insulin DeviceIndications: Type 1 dependent, not diabetes mellitus without controlled. E10.9 complication (HCC) Continuous Blood Gluc Sensor 1 Device by Does not 6 Device 3 12/09/2018 Active Does not apply Misc apply route EVERY FOUR HOURS. Insulin Syringe-Needle U-100 1 Units by Does not 400 Each 0 08/07/2019 Active (BD INSULIN SYRINGE ULTRAFINE) apply route FOUR TIMES 31G X 15/64" 1 ML Does not DAILY. E10.9 type 1 apply MiscIndications: Type 1 diabetes on insulin 4 diabetes mellitus with times a day ketoacidosis without coma (HCC) ondansetron (ZOFRAN ODT) 8 MG Take 1 Tab by mouth 30 Tab 0 08/07/2019 Active Oral TABLET EVERY EIGHT HOURS DISPERSIBLEIndications: Type 1 NEEDED (nausea). diabetes mellitus with ketoacidosis without coma (HCC) documented as of this encounter (statuses as of 08/27/2019) Active Problems Problem Noted Date Type 1 diabetes mellitus 12/04/2011 Overview: Onset 2006, on and off pump 2007 Adult BMI 19-24 kg/sq m 04/12/2011 documented as of this encounter (statuses as of 08/27/2019) Resolved Problems Problem Noted Date Resolved Date Other abnormal glucose 12/15/2006 12/04/2011 Urethral stricture unspecified 12/21/2004 12/18/2017 Type I (juvenile type) diabetes mellitus without mention of 12/04/2011 complication, uncontrolled Overview: onset 2006; on and off pump 2007 documented as of this encounter (statuses as of 08/27/2019) Immunizations Name Administration Dates Next Due Influenza (IM) Preservative Free 07/14/2018, 09/21/2010 Influenza Vaccine Split 08/13/2011 PNEUMOCOCCAL POLYSACCHARIDE VACCINE 08/13/2011 documented as of this encounter Social History Tobacco Use Types Packs/Day Years Used Date Never Smoker Smokeless Tobacco: Never Used Alcohol Use Drinks/Week oz/Week Comments No Sex Assigned at Date Recorded Not on file Job Start Date Occupation Industry Not on file Not on file Not on file Travel History Travel Start Travel End No recent travel history available. documented as of this encounter Last Filed Vital Signs Vital Sign Reading Time Taken Comments Blood Pressure 116/70 08/27/2019 9:41 AM EST Pulse 88 08/27/2019 9:41 AM EST Temperature - - Respiratory Rate - - Oxygen Saturation - - Inhaled Oxygen Concentration - - Weight 67.1 kg (148 lb) 08/27/2019 9:41 AM EST Height 162.6 cm (5' 4") 08/27/2019 9:41 AM EST Body Mass Index 25.4 08/27/2019 9:41 AM EST documented in this encounter Progress Notes Avis Padilla FNP - 08/27/2019 9:40 AM EST NAME: Sully Mcgovern : 1985 DATE: 08/27/2019 SUBJECTIVE: Sully Mcgovern is a 34-y.o. female is here for follow up for her Diabetes Mellitus type 1 since age 21. Had been on OmniPod years ago. Now she prefers MDI. Although she did not bring in blood sugars, she reports testing 4-6 times daily for insulin adjustments. She admits she is not as strict with diet as she knows she should be. A1C, however, has steadily improved from 10.0 to 9.7 to 9.4 to current 8.8. Denies any episode of hypoglycemia requiring assistance. Is current on opthalmologic exam. No history of retinopathy. no neuropathy. Current medications, allergies, and all history have been reviewed. Current Outpatient Medications Medication Sig Blood Glucose Monitoring Suppl (BLOOD GLUCOSE METER) Does not apply Kit by Does not apply route. Continuous Blood Gluc Travel Manager (FREESTYLE TORITO 14 DAY READER) Does not apply Device 1 Deviceby Does not apply route DAILY. Type 1 diabetes, insulin dependent, not controlled. E10.9 Continuous Blood Gluc Sensor Does not apply Misc 1 Device by Does not apply route EVERY FOUR HOURS. GLARGINE insulin, LONG-Acting, (LANTUS) 100 UNIT/ML Subcutaneous Solution Inject 18-20 Units beneath the skin TWICE DAILY. (Patient taking differently: Inject 35 Units beneath the skin EVERY MORNING.) Insulin Syringe-Needle U-100 (BD INSULIN SYRINGE ULTRAFINE) 31G X 15/64" 1 ML Does not apply Misc 1 Units by Does not apply route FOUR TIMES DAILY. E10.9 type 1 diabetes on insulin 4 times a day Lancets Does not apply Misc by Does not apply route. Brand:[employer] Dx :250.03 Insulin dependent Test Blood Glucose 4 time(s) A DAY LISPRO insulin, RAPID - Acting, (HUMALOG) 100 UNIT/ML Subcutaneous Solution Inject 7 Units beneath the skin DIRECTED. 7 base plus sliding scale Indications: Insulin-Dependent Diabetes, additional correction factor is 2 unit to15 grams of carb ondansetron (ZOFRAN ODT) 8 MG Oral TABLET DISPERSIBLE Take 1 Tab by mouth EVERY EIGHT HOURS NEEDED (nausea). No current facility-administered medications for this visit. Allergies Allergen Reactions Amoxicillin Hives Past Medical History: Diagnosis Date H/O urethral stricture age 20, dilated; had frequent UTIs prior Type 1 diabetes mellitus (HCC) onset 2006; on and off pump 2007--off the pump; dx age 21 Social History Socioeconomic History Marital status: Single Spouse name: Not on file Number of children: Not on file Years of education: Not on file Highest education level: Not on file Occupational History Not on file Social Needs Financial resource strain: Not on file Food insecurity: Worry: Not on file Inability: Not on file Transportation needs: Medical: Not on file Non-medical: Not on file Tobacco Use Smoking status: Never Smoker Smokeless tobacco: Never Used Substance and Sexual Activity Alcohol use: No Drug use: No Sexual activity: Yes Partners: Male control/protection: I.U.D. Comment: Barbi, 2015; [employer] maintenance millwright Lifestyle Physical activity: Days per week: Not on file Minutes per session: Not on file Stress: Not on file Relationships Social connections: Talks on phone: Not on file Gets together: Not on file Attends mosque service: Not on file Active member of club or organization: Not on file Attends meetings of clubs or organizations: Not on file Relationship status: Not on file Intimate partner violence: Fear of current or ex partner: Not on file Emotionally abused: Not on file Physically abused: Not on file Forced sexual activity: Not on file Other Topics Concern Back Care Not Asked Bike Helmet Not Asked Blood Transfusions No Caffeine Concern Not Asked Exercise Yes Comment: works on a farm, very active Hobby Hazards Not Asked International Travel Not Asked Service Not Asked Occupational Exposure Not Asked Seat Belt Not Asked Self-Exams Not Asked Sleep Concern Not Asked Special Diet No Stress Concern Yes Weight Concern Not Asked Social History Narrative Single. No children. No works at [employer], less stressful job, better insurance Pets: 1 lozada. [place] Family History Problem Relation Age of Onset Diabetes Father Hypertension Father No Known Problems Sister Diabetes Paternal Aunt type ! Diabetes Other type 1 OBJECTIVE: Blood pressure 116/70, pulse 88, height 5' 4" (1.626 m), weight 148 lb (67.1 kg). General: no distress. Eyes: Conjunctiva pink Neck: no thyroid enlargement or nodules. Heart: regular rate and rhythm, no murmur. Lungs: Clear to auscultation. Abdomen: Normal bowel sounds Left foot Diabetic foot exam: Visual exam: normal Sensory: Filament testing normal Pulse: Pedal pulse present Right foot diabetic exam Visual exam: normal Sensory: Filament testing normal Pulse: Pedal pulse present Extremities: No edema. Psych: Alert and oriented. Lab Results Component Value Date GLYCO 8.6 (H) 08/25/2019 GLYCO 9.4 (H) 03/05/2019 GLYCO 9.4 (H) 10/27/2018 Lab Results Component Value Date GLYCOPOCT 8.8 (A) 08/26/2013 GLYCOPOCT 9.0 (A) 12/15/2012 GLYCOPOCT 8.2 (A) 08/07/2012 ASSESSMENT and PLAN: 1. Diabetes mellitus type1 Steady improvement Goal blood sugars discussed Injection site rotation BEBETO Álvarez Section of Endocrinology 08/27/2019 10:08 documented in this encounter Plan of Treatment Date Type Specialty Care Team Description 02/26/2020 Office Visit Endocrinology Lashon Cadena CRNP [address] [place] [address] Health Maintenance Due Date Last Done Comments INFLUENZA VACCINE (#1) 2019 07/14/2018, 08/13/2011, 09/21/2010 Diabetic Eye Exam 09/13/2019 09/13/2018, 04/15/2017 (Previously completed), 10/14/2015 DEPRESSION SCREENING 11/12/2019 11/12/2018 FOOT EXAM 11/12/2019 11/12/2018, 11/12/2018, 11/12/2018, Additional history exists URINE MICROALBUMIN 11/12/2019 11/12/2018, 08/26/2017, 08/23/2016, Additional history exists HEMOGLOBIN A1C 11/25/2019 08/25/2019, 03/05/2019, 10/27/2018, Additional history exists PAP SMEAR 11/06/2021 11/06/2018, 02/04/2011 PNEUMOCOCCAL 0-64 YRS Completed 08/13/2011 HPV IMMUNIZATION SERIES Aged Out No longer eligible based on patient's age to complete this topic MENINGOCOCCAL VACCINE IMM Aged Out No longer eligible based on patient's age to complete this topic documented as of this encounter Goals Goal Patient Goal Associated Recent Patient-Stated? Author Type Problems Progress Glycohemoglobin A1c Diabetes 8.6 No Mohsen, < 7.0 (08/25/2019 Carisa Bustos, 11:46 AM EST) Note: This is an individualized treatment (diabetes control, HgbA1C) goal for Sully Teresa AlatorreBerclair: Displayed above is your progress towards your HgbA1C goal. Your goal is shown above (on the left); your most recent HgbA1C is shown on the right. Note that lower numbers are better. Keep immunizations current Lifestyle Carisa Mandel MD Note: This is an individualized lifestyle goal for Sully Alatorrebert: Please be sure to keep up-to-date on recommended immunizations. For example, this would include a yearly influenza vaccine. Immunization status can be seen by looking at the Health Maintenance sections of your e[facility], Plan of Care, and any After Visit Summaries. Take all prescribed medications as Self-management No Carisa Connolly MD directed Note: This is an individualized self-management goal for Sully Teresa AlatorreBerclair: Please take all prescribed medications as directed. 1. Do not skip doses. If you cannot afford your medications, talk with your doctor. 2. Use a pill reminder system such as a pill box if needed. Your pharmacist can help you with this. 3. Contact your Pharmacy 5 days before your medication runs out. If you cannot take your medications for any reasons, talk with your doctor. 4. Please bring all of your medication bottles and inhalers (or a list of all your medications/inhalers) with you to every visit. Potential barriers to meeting all of your care plan goals will continue to be addressed on an ongoing basis. documented as of this encounter Results Not on filedocumented in this encounter Visit Diagnoses Diagnosis Type 1 diabetes mellitus without complication (HCC) - Primary Type I (juvenile type) diabetes mellitus without mention of complication, not stated as uncontrolled documented in this encounter (Home) [address] [phone] [place], [place] (Work) [id number] documented as of this encounter
[2019-09-25 15:06] LABS: ABS Eosinophils 0.1 10^3/ul (0-0.6); ABS Lymphocytes 1.2 10^3/ul (1.0-4.8); ABS Monocytes 0.6 10^3/ul (0-0.8); ABS Neutrophils 4.5 10^3/ul (1.5-7.7); Eosinophil % 1.2 %; Hematocrit 41 % (35-47); Hemoglobin 14.1 g/dL (12.0-16.0); Lymphocyte % 18.2 %; Mean Corpuscular HGB Conc 34 g/dL (31-36); Mean Corpuscular Hemoglobin 32 pg (27-31); Mean Corpuscular Volume 93 fL (80-97); Mean Platelet Volume 7.8 fL (7.4-10.4); Nucleated Red Blood Cells % 0.1; Platelet Count 260 10^3/uL (150-450); Red Blood Count 4.46 10^6 /uL (3.70-4.87); Red Cell Distribution Width 13 % (10-15); White Blood Count 6.3 10^3/uL (3.5-10.8)
[2019-09-25 15:24] LABS: ALT 10 U/L (7-52); AST 14 U/L (13-39); Albumin 4.1 g/dL (3.2-5.2); Albumin/Globulin Ratio 1.6 (1-3); Alkaline Phosphatase 85 U/L (34-104); Anion Gap 7 mmol/L (2-11); BUN/Creatinine Ratio 11.7 (8-20); Blood Urea Nitrogen 9 mg/dL (6-24); C Reactive Protein 1.18 mg/L (<8.01); CO2 Carbon Dioxide 26 mmol/L (22-32); Calcium 9.2 mg/dL (8.6-10.3); Chloride 103 mmol/L (101-111); EGFR African American 104.5 (>60); EGFR Non-African American 86.3 (>60); Globulin 2.5 g/dL (2-4); Glucose 297 mg/dL (70-100); Potassium 3.9 mmol/L (3.5-5.0); Sodium 136 mmol/L (135-145); Total Protein 6.6 g/dL (6.4-8.9)
[2019-09-25 15:30] LABS: HCG Pregnancy < 0.60 mIU/mL
--- NOTE | 2019-09-25 16:44 | ED ---
Abdominal Pain/Female - HPI Summary HPI Summary: This patient is a 34 year old female with a Hx of IDDM presenting to [facility] with a chief complaint of lower abdominal/suprapubic pain. The patient states her OBGYN diagnosed with endometriosis and fibroids. She states the pain became prominent 3 days ago and radiates into her back. She states she has been spotting all week. She reports nausea and sweats. She takes ibuprofen to no relief. Pt denies any fever, chills, erythema of eyes, sore throat, CP, SOB, cough, vomiting, dysuria, hematuria, myalgia, edema, rash, or dizziness. - History of Current Complaint Chief Complaint: EDAbdPain Stated Complaint: LOWER ABD PAIN Time Seen by Provider: 09/25/19 16:29 Hx Obtained From: Patient Hx Last Menstrual Period: 1 WEEK AGO Onset/Duration: Lasting Weeks Pain Intensity: 6 Pain Scale Used: 0-10 Numeric Location: Discrete At: RLQ, Discrete At: LLQ, Suprapubic Allergies/Adverse Reactions: Allergies Allergy/AdvReac Type Severity Reaction Status Date / Time amoxicillin Allergy Hives Verified 09/25/19 14:23 Home Medications: Home Medications Norethindrone Acetate 5 mg PO DAILY 09/25/19 [History Confirmed 09/25/19] PMH/Surg Hx/FS Hx/Imm Hx Endocrine/Hematology History: Reports: Hx Diabetes Denies: Hx Thyroid Disease Cardiovascular History: Denies: Hx Hypertension Respiratory History: Denies: Hx Asthma, Hx Chronic Obstructive Pulmonary Disease (COPD) GI History: Denies: Hx Ulcer Musculoskeletal History: Denies: Hx Arthritis, Hx Osteoporosis Sensory History: Reports: Hx Contacts or Glasses Denies: Hx Hearing Aid Opthamlomology History: Reports: Hx Contacts or Glasses Neurological History: Reports: Hx Headaches - stress Infectious Disease History: No Infectious Disease History: Denies: Hx Hepatitis, Hx Human Immunodeficiency Virus (HIV), Traveled Outside the [place] in Last 30 Days - Family History Known Family History: Positive: Hypertension, Diabetes - Social History Alcohol Use: Occasionally Substance Use Type: Reports: None Hx Tobacco Use: Yes Smoking Status (MU): Current Some Day Smoker Type: Cigarettes Review of Systems Positive: Skin Diaphoresis. Negative: Fever, Chills Negative: Erythema Negative: Sore Throat Negative: Chest Pain Negative: Shortness Of Breath, Cough Positive: Abdominal Pain, Nausea. Negative: Vomiting Positive: other - Vaginal Spotting, LNMP one week ago. . Negative: dysuria, hematuria Negative: Myalgia, Edema Negative: Rash Neurological: Other - Neg: Dizziness All Other Systems Reviewed And Are Negative: No Physical Exam - Summary Physical Exam Summary: Constitutional: Well-developed, Well-nourished, Alert. (-) Distressed Skin: Warm, Dry HENT: Normocephalic; Atraumatic Eyes: Conjunctiva normal Neck: Musculoskeletal ROM normal neck. (-) JVD, (-) Stridor, (-) Tracheal deviation Cardio: Rhythm regular, rate normal, Heart sounds normal; Intact distal pulses; The pedal pulses are 2+ and symmetric. Radial pulses are 2+ and symmetric. (-) Murmur Pulmonary/Chest wall: Effort normal. (-) Respiratory distress, (-) Wheezes, (-) Rales Abd: Soft, (-) tenderness, (-) Distension, (-) Guarding, (-) Rebound Musculoskeletal: (-) Edema Lymph: (-) Cervical adenopathy Neuro: Alert, Oriented x3 Psych: Mood and affect Normal Triage Information Reviewed: Yes Vital Signs On Initial Exam: Initial Vitals Temp Pulse Resp BP Pulse Ox 98.4 F 99 20 148/97 100 09/25/19 14:18 09/25/19 14:18 09/25/19 14:18 09/25/19 14:18 09/25/19 14:18 Vital Signs Reviewed: Yes Procedures - Sedation Patient Received Moderate/Deep Sedation with Procedure: No Diagnostics - Vital Signs Vital Signs Temp Pulse Resp BP Pulse Ox 09/25/19 15:54 98.9 F 80 17 110/66 98 09/25/19 14:18 98.4 F 99 20 148/97 100 - Laboratory Lab Results: Lab Results 09/25/19 09/25/19 09/25/19 Range/Units 14:52 14:52 14:54 WBC 6.3 (3.5-10.8) 10^3/uL RBC 4.46 (3.70-4.87) 10^6 /uL Hgb 14.1 (12.0-16.0) g/dL Hct 41 (35-47) % MCV 93 (80-97) fL MCH 32 H (27-31) pg MCHC 34 (31-36) g/dL RDW 13 (10-15) % Plt Count 260 (150-450) 10^3/uL MPV 7.8 (7.4-10.4) fL Neut % (Auto) 70.8 % Lymph % (Auto) 18.2 % Dunn % (Auto) 9.2 % Eos % (Auto) 1.2 % Baso % (Auto) 0.6 % Absolute Neuts (auto) 4.5 (1.5-7.7) 10^3/ul Absolute Lymphs (auto) 1.2 (1.0-4.8) 10^3/ul Absolute Monos (auto) 0.6 (0-0.8) 10^3/ul Absolute Eos (auto) 0.1 (0-0.6) 10^3/ul Absolute Basos (auto) 0.0 (0-0.2) 10^3/ul Absolute Nucleated RBC 0.0 10^3/ul Nucleated RBC % 0.1 Sodium 136 (135-145) mmol/L Potassium 3.9 (3.5-5.0) mmol/L Chloride 103 (101-111) mmol/L Carbon Dioxide 26 (22-32) mmol/L Anion Gap 7 (2-11) mmol/L BUN 9 (6-24) mg/dL Creatinine 0.77 (0.51-0.95) mg/dL Est GFR ( Amer) 104.5 (>60) Est GFR (Non-Af Amer) 86.3 (>60) BUN/Creatinine Ratio 11.7 (8-20) Glucose 297 H (70-100) mg/dL Lactic Acid 0.7 (0.5-2.0) mmol/L Calcium 9.2 (8.6-10.3) mg/dL Total Bilirubin 0.30 (0.2-1.0) mg/dL AST 14 (13-39) U/L ALT 10 (7-52) U/L Alkaline Phosphatase 85 (34-104) U/L C-Reactive Protein 1.18 (<8.01) mg/L Total Protein 6.6 (6.4-8.9) g/dL Albumin 4.1 (3.2-5.2) g/dL Globulin 2.5 (2-4) g/dL Albumin/Globulin Ratio 1.6 (1-3) Lipase 19 (11.0-82.0) U/L Beta HCG, Quant < 0.60 mIU/mL Result Diagrams: 09/25/19 14:54 09/25/19 14:52 Lab Statement: Any lab studies that have been ordered have been reviewed, and results considered in the medical decision making process. - CT Abd/Pel CT Interpretation Completed By: Radiologist Summary of CT Findings: Normal appearing appendix. Large fibroid arising from the left side of the uterus. There is suggestion of a right ovarian cyst measuring up to 3.2 cm. ED Provider has reviewed this report. - Ultrasound No standard instances Ultrasound Interpretation Completed By: Radiologist Summary of Ultrasound Findings: Transvaginal: 1. In the left adnexa, corresponding to the same day CT abdomen and pelvis, there is a well- circumscribed mass measuring 5.6 cm. The differential diagnosis includes a predunculated uterine fibroid versus endometrioma. If it will influence clinial management, superior imaging characterization can be made with MRI of the pelvis with and without contrast. 2. Otherwise normal and age-appropriate pelvic ultrasound including an appropitately positioned IUD. ED Provider has reviewed this report. Abdominal Pain Fem Course/Dx - Course Course Of Treatment: This patient is a 34 year old female with a Hx of IDDM presenting to [facility] with a chief complaint of lower abdominal/suprapubic pain. CT Abd/Pel reveals Normal appearing appendix. Large fibroid arising from the left side of the uterus. There is suggestion of a right ovarian cyst measuring up to 3.2 cm. Transvaginal US reveals 1. In the left adnexa, corresponding to the same day CT abdomen and pelvis, there is a well-circumscribed mass measuring 5.6 cm. The differential diagnosis includes a predunculated uterine fibroid versus endometrioma. If it will influence clinial management, superior imaging characterization can be made with MRI of the pelvis with and without contrast. 2. Otherwise normal and age-appropriate pelvic ultrasound including an appropitately positioned IUD. Discussed the possibility of malignancy with patient. Patient will be instructed to follow up with her OBGYN in 2-3 days. A plan for discharge was discussed with the patient and she was agreeable with this plan. - Diagnoses Provider Diagnoses: Uterine mass, Right ovarian cyst Discharge ED - Sign-Out/Discharge Documenting (check all that apply): Patient Departure - Discharge - Discharge Plan Condition: Stable Disposition: HOME Prescriptions: HYDROcodone/ACETAMIN 5-325 MG* [[place] 5-325 TAB*] 1 tab PO Q6H PRN #12 tab MDD 4 PRN Reason: Pain - Moderate Patient Education Materials: Ovarian Cyst (ED) Forms: *Work Release Referrals: Rui Gregorio MD [Medical Doctor] - 3 Days Additional Instructions: Follow up with Dr. Gregorio in 2-3 days. - Attestation Statements Document Initiated by Scribe: Yes Documenting Scribe: Sav Turcios Provider For Whom Scribe is Documenting (Include Credential): Moose Chapa MD Scribe Attestation: Sav Turner, scribed for Moose Chapa MD on 09/25/19 at 1853. Status of Scribe Document: Ready
[2019-09-25] MEDS ORDERED: Ketorolac INJ* 30 MG/ML 1 ML VIAL IV PUSH ONE (16:50)
[2019-09-25] MEDS ORDERED: Iodixanol* (CONTRAST) 320 MG/ML 100 ML SDV IV ONE (17:25)
[2019-09-25 17:58] LABS: Urine Appearance Clear; Urine Bilirubin Negative (Negative); Urine Blood Negative (Negative); Urine Color Yellow; Urine Glucose 3+(>=500 mg/dL) (Negative); Urine Ketones Trace (Negative); Urine Nitrite Negative (Negative); Urine Protein Negative (Negative); Urine Specific Gravity 1.039 (1.010-1.030); Urine Urobilinogen Negative (Negative)
[2019-09-25 19:14] VITALS: BP 122/89
== END 2019-09-25 19:14 | disposition home or self-care (01) ==
LOC: ED 14:16
DX: D25.9 Leiomyoma of uterus, unspecified (principal); N83.201 Unspecified ovarian cyst, right side; E11.9 Type 2 diabetes mellitus without complications; F17.210 Nicotine dependence, cigarettes, uncomplicated; Z79.899 Other long term (current) drug therapy; Z88.0 Allergy status to penicillin
CPT/HCPCS: 36415; 74177; 76830; 80053; 81003; 83605; 83690; 84702; 85025; 86140; 96374; 99283; J1885; Q9967

== ENCOUNTER 2019-10-09 07:48 | Day surgery (SDC) | payer BC ==
[~2019-10-09 07:48] MED LIST: Buffered Lidocaine 1% SYRIN* 1 ML/SYRINGE INTRADERM ONE; DiMENhydriNATE IV* 50 MG/ML VIAL IV PUSH ONE; Famotidine IV* 10 MG/ML 2 ML (20 mg) IV ONE; Lactated Ringers 1000 ML Bag* 1,000 ML IV SCH; Naloxone* 0.4 MG/ML 1 ML VIAL IV PRN; Ondansetron ODT TAB* 4 MG PO ONE; PROCHLORPERAZINE INJ 5 MG/ML 2 ML VIAL IV PRN; Scopolamine 1.5 mg* PATCH TRANSDERM PRN; fentaNYL* 50 MCG/ML 2 ML VIAL (100 MCG VIAL) IV PRN; oxyCODONE TAB* 5 MG TAB PO PRN
[2019-10-09] MEDS ORDERED: Buffered Lidocaine 1% SYRIN* 1 ML/SYRINGE INTRADERM ONE (09:57)
[2019-10-09] MEDS ORDERED: DiMENhydriNATE IV* 50 MG/ML VIAL ONE (09:57)
[2019-10-09] MEDS ORDERED: Ondansetron ODT TAB* 4 MG ONE (09:57)
[2019-10-09] MEDS ORDERED: Famotidine IV* 10 MG/ML 2 ML (20 mg) ONE (09:58)
[2019-10-09] MEDS ORDERED: KETAMINE HCL* 50 MG/ML 10 ML VIAL ONE (10:08)
[2019-10-09] MEDS ORDERED: Midazolam* 1 MG/ML 5 ML VIAL (5 MG) ONE (10:08)
[2019-10-09] MEDS ORDERED: fentaNYL* 50 MCG/ML 2 ML VIAL (100 MCG VIAL) ONE ×2 (10:08→11:40)
[2019-10-09] MEDS ORDERED: Rocuronium* 10 MG/ML VIAL ONE (10:09)
[2019-10-09] MEDS ORDERED: Bupivacaine 0.25% SDV PF* 10 ML VIAL INJ ONE (10:38)
[2019-10-09 10:50] LABS: ABS Basophils 0.1 10^3/ul (0-0.2); ABS Lymphocytes 1.3 10^3/ul (1.0-4.8); ABS Monocytes 0.6 10^3/ul (0-0.8); ABS Neutrophils 3.7 10^3/ul (1.5-7.7); Eosinophil % 0.8 %; Hematocrit 45 % (35-47); Hemoglobin 15.1 g/dL (12.0-16.0); Lymphocyte % 22.5 %; Mean Corpuscular HGB Conc 34 g/dL (31-36); Mean Corpuscular Hemoglobin 31 pg (27-31); Mean Corpuscular Volume 92 fL (80-97); Mean Platelet Volume 7.8 fL (7.4-10.4); Platelet Count 283 10^3/uL (150-450); Red Blood Count 4.85 10^6 /uL (3.70-4.87); Red Cell Distribution Width 13 % (10-15); White Blood Count 5.7 10^3/uL (3.5-10.8)
[2019-10-09 11:00] LABS: Albumin 4.6 g/dL (3.2-5.2); Albumin/Globulin Ratio 1.9 (1-3); BUN/Creatinine Ratio 11.1 (8-20); Calcium 8.9 mg/dL (8.6-10.3); EGFR African American 112.9 (>60); EGFR Non-African American 93.3 (>60); Globulin 2.4 g/dL (2-4); Total Bilirubin 0.4 mg/dL (0.2-1.0)
[2019-10-09] MEDS ORDERED: Lidocaine 2% PF * 5 ML VIAL ONE (11:27)
[2019-10-09] MEDS ORDERED: Acetaminophen IV 1GM/100ML * 100 ML ONE (11:27)
[2019-10-09] MEDS ORDERED: Sugammadex * 200 MG/2 ML VIAL IV PUSH ONE ×2 (11:28→11:42)
[2019-10-09] MEDS ORDERED: Propofol* 10 MG/ML 20 ML BTL ONE (11:28)
[2019-10-09] MEDS ORDERED: Ketorolac INJ* 30 MG/ML 1 ML VIAL ONE (11:28)
[2019-10-09] MEDS ORDERED: oxyCODONE TAB* 5 MG TAB ONE (12:48)
[2019-10-09 13:38] VITALS: BP 118/80
--- NOTE | 2019-10-10 04:28 | OP ---
OPERATIVE REPORT: DATE OF OPERATION: 10/09/19 - [facility] DATE OF : 87 SURGEON: Rui Gregorio MD. ANESTHESIOLOGIST: Dr. Echols. ANESTHESIA: General. PRE-OP DIAGNOSIS: Right lower quadrant pain and right ovarian cyst. POST-OP DIAGNOSIS: Right lower quadrant pain and fibroid uterus. OPERATIVE PROCEDURE: . ESTIMATED BLOOD LOSS: Minimal. URINE OUTPUT: 100 cc. IV FLUIDS: 1000 cc lactated Ringer's. MATERIALS TO LAB: None. INDICATIONS: This patient was a 34-year-old 1, para 0-0-1-0 who presented for new consultation last week due to persistent and intermittently severe right lower quadrant pain. CT and ultrasounds were performed when she was seen in the emergency department. A moderate-sized right ovarian cyst approximately 4 cm was seen, in addition to a uterus with a fibroid, which may be pedunculated. This was also thought to possibly be an endometrioma. The patient has an IUD for contraception. After discussing the patient's options and considering the severity of her pain, which was requiring daily narcotics, she desired to proceed with surgical evaluation with likely ovarian cystectomy. She was extensively counseled and consent was signed. FINDINGS: Enlarged uterus with multiple very small fibroids in addition to what appears to be a fairly large posterior fibroid. No large fibroids were pedunculated. The remainder of the pelvis appeared completely normal with normal fallopian tubes and ovaries. The right ovary did not have any cyst at all. The left ovary only had a small normal-appearing functional cyst. The appendix was well visualized and normal. There was no visible endometriosis on careful inspection of the entire pelvis. The anterior peritoneal surface was noted to have somewhat patchy vascular appearance, which could be consistent with long-term diabetes. COMPLICATIONS: None. DESCRIPTION OF PROCEDURE: The risks, benefits, and alternatives were described to the patient and informed consent was obtained. The patient was taken to the operating room with IV running where general anesthesia was induced and found to be adequate. The patient was prepped and draped in the normal sterile fashion in the high lithotomy position and Eric stirrups. A time-out was performed. The bladder was emptied. A bivalve speculum was placed in the vagina and a Hulka tenaculum was placed on the cervix. The speculum was then removed and the patient was returned to the low lithotomy position. Gloves were changed and attention was turned to the abdomen. 0.25% Marcaine was injected into the umbilicus. Penetrating towel clamps were placed in the skin on either sides of the umbilicus to elevate the skin. A 5- mm bladeless trocar was then inserted into the peritoneal cavity under direct visualization with the laparoscope. The abdomen was then insufflated with carbon dioxide gas to a maximum pressure of 15 mmHg. The area below the trocar insertion site was carefully inspected and there was no evidence of trauma or bleeding. 0.25% Marcaine was then injection into the patient's left lower quadrant and a 5 mm incision was made. A second 5 mm trocar was then placed into the peritoneal cavity without difficulty. The patient was placed in a Trendelenburg position. Using a blunt grasper and uterine manipulator, the bowel was slipped out of the pelvis and the pelvis was well visualized and carefully inspected. The findings are noted above. Considering there was no endometriosis or abnormal cysts present, the decision was made to discontinue the procedure at that time. Several pictures were taken to document the findings. The gas was allowed to escape. The trocars were removed from both sides. The patient was returned to a flat position. The skin of the left lower quadrant incision was reapproximated using 4-0 Monocryl in a subcuticular stitch. DermaFlex skin adhesive was then used on both of the incisions. The Hulka tenaculum was then removed and the patient was returned to the supine position and awakened. The patient tolerated the procedure well. Sponge, lap, and needle counts were correct x2. [id number]/[facility] #: [id number] [facility]
[2019-10-12] MEDS ORDERED: Scopolamine PATCH Remove* 1 NOTE MISC PATCH OFF ONE (07:06)
== END 2019-10-09 13:40 | disposition home or self-care (01) ==
LOC: OR 07:48
PROVIDERS: ATTEND Obstetrics & Gynecology
DX: R10.2 Pelvic and perineal pain (principal); R10.31 Right lower quadrant pain; D25.9 Leiomyoma of uterus, unspecified; N83.202 Unspecified ovarian cyst, left side; E11.9 Type 2 diabetes mellitus without complications; Z79.4 Long term (current) use of insulin; Z87.891 Personal history of nicotine dependence
CPT/HCPCS: 36415; 80053; 81025; 83036; 85025; 86850; 86900; 86901; A9270-GY; J1240; J1885; J2250; J2704; J3010; J3490